=== PATIENT | female | born 1995 | race African-American/Black ===

== ENCOUNTER 2017-04-30 01:54 | Emergency (ER) | payer OTHER ==
[~2017-04-30] VITALS: Ht 165.1 cm; Wt 70.0 kg
[2017-04-30] MEDS ORDERED: LIDOCAINE HCL 1% 20ML VIAL (Pyxis) INJ MC ONE (06:15)
[2017-04-30] MEDS ORDERED: TETANUS, DIPHTHERIA, PERTUSSIS VAC/PF 0.5ML (>7YR OLD) IM ONE (06:15)
[2017-04-30] MEDS ORDERED: BACITRACIN ZINC OINT UDPKT TOP ONE (06:15)
[2017-04-30 06:25] VITALS: BP 117/67
== END 2017-04-30 08:16 | disposition home or self-care (01) ==
LOC: ER 01:54
DX: S61.411A Laceration without foreign body of right hand, initial encounter (principal); S61.210A Laceration without foreign body of right index finger without damage to nail, initial encounter; S61.212A Laceration without foreign body of right middle finger without damage to nail, initial encounter; F17.200 Nicotine dependence, unspecified, uncomplicated; F12.10 Cannabis abuse, uncomplicated; X99.1XXA Assault by knife, initial encounter; Y93.89 Activity, other specified; Y92.89 Other specified places as the place of occurrence of the external cause; Y99.8 Other external cause status
CPT/HCPCS: 12002; 73130; 90471; 90715; 99284; J3490; X7700; Z7610

== ENCOUNTER 2019-12-21 08:21 | Emergency (ER) | payer OTHER ==
[~2019-12-21] VITALS: Ht 167.6 cm; Wt 79.0 kg
[2019-12-21] MEDS ORDERED: ACETAMINOPHEN 325MG TABLET PO STA (08:43)
[2019-12-21 09:07] LABS: HEMATOCRIT. 33.5 % (36.0-48.0); HEMOGLOBIN. 11.4 g/dL (12.0-16.0); MEAN CORPUSCULAR HEMOGLOBIN 28.9 pg (28.0-32.0); MEAN CORPUSCULAR VOLUME 84.9 fL (81.0-99.0); MEAN PLATELET VOLUME 8.3 fl (7.4-10.4); PLATELET 257 x1000/uL (130-400); RED BLOOD CELL COUNT 3.94 mill/uL (4.2-5.4); RED CELL DISTRIBUTION WIDTH 14.1 % (11.6-14.6)
[2019-12-21 09:13] LABS: CHLORIDE 102 mEq/L (98-107)
[2019-12-21 09:27] LABS: CLARITY URINE CLEAR (CLEAR); COLOR URINE YELLOW (YELLOW); KETONES URINE NEGATIVE (NEGATIVE); LEUKOCYTE ESTERASE URINE 3+ (NEGATIVE); NITRITE URINE POSITIVE (NEGATIVE); OCCULT BLOOD URINE 3+ (NEGATIVE); PH URINE 6.5 (4.5-8.0); PROTEIN URINE 1+ (NEGATIVE); SPECIFIC GRAVITY URINE 1.013 (1.005-1.030)
[2019-12-21 10:12] LABS: PLATELET ESTIMATE NORMAL
[2019-12-21] MEDS ORDERED: AMOXICILLIN/POTASSIUM CLAVULANATE 875/125MG TAB PO ONE (10:45)
[2019-12-21] MEDS ORDERED: AMOXICILLIN 500 MG CAPSULE PO ONE (10:45)
[2019-12-21] MEDS ORDERED: IBUPROFEN 600MG TABLET PO ONE (10:45)
[2019-12-21 11:11] VITALS: BP 102/60
== END 2019-12-21 11:12 | disposition home or self-care (01) ==
LOC: ER 08:21
DX: N10 Acute pyelonephritis (principal); R10.9 Unspecified abdominal pain
CPT/HCPCS: 36415; 74176; 80053; 81003; 81025; 85025; 87077; 87186; 99284